=== PATIENT | female | born 1970 | race Two or more races ===

== ENCOUNTER 2019-11-30 16:50 | Emergency (ER) | payer OTHER ==
[~2019-11-30] VITALS: Ht 152.4 cm; Wt 69.9 kg
[2019-11-30] MEDS ORDERED: STEGLATRO5 MG (17:22)
[2019-11-30] MEDS ORDERED: FORTAMET1000 MG (17:23)
[2019-12-01] MEDS ORDERED: LEVSIN/SL0.125 MG SL (06:03)
[2019-12-01] MEDS ORDERED: MOBIC15 MG PO (06:03)
[2019-12-01] MEDS ORDERED: PEPCID40 MG PO (06:03)
[2019-12-01] MEDS ORDERED: PHENERGAN25 MG PO (06:03)
== END 2019-12-01 06:21 | disposition home or self-care (01) ==
LOC: ER 16:50
DX: K65.4 Sclerosing mesenteritis (principal); R10.11 Right upper quadrant pain

== ENCOUNTER 2019-12-16 12:35 | Emergency (ER) | payer OTHER ==
[~2019-12-16] VITALS: Ht 152.4 cm; Wt 69.9 kg
[~2019-12-16 12:35] MED LIST: FORTAMET1000 MG; LEVSIN/SL0.125 MG SL; MOBIC15 MG PO; PEPCID40 MG PO; PHENERGAN25 MG PO; STEGLATRO5 MG
== END 2019-12-16 16:02 | disposition home or self-care (01) ==
LOC: ER 12:35
DX: K58.8 Other irritable bowel syndrome (principal); R10.31 Right lower quadrant pain

== ENCOUNTER 2020-06-16 07:44 | Outpatient (CLI) | payer OTHER | END 2020-06-16 08:00 | disposition home or self-care (01) | LOC: NUCLEAR 07:44 | PROVIDERS: ATTEND Internal Medicine Cardiovascular Disease | DX: M81.0 Age-related osteoporosis without current pathological fracture (principal); E55.9 Vitamin D deficiency, unspecified ==

== ENCOUNTER → 2020-06-16 08:46 | Outpatient (CLI) | payer OTHER | END | disposition home or self-care (01) | LOC: LAB 08:46 | PROVIDERS: ATTEND Internal Medicine Cardiovascular Disease | DX: I10 Essential (primary) hypertension (principal); E11.9 Type 2 diabetes mellitus without complications; E03.8 Other specified hypothyroidism; E78.2 Mixed hyperlipidemia; E55.9 Vitamin D deficiency, unspecified ==

== ENCOUNTER 2020-06-16 10:13 | Outpatient (CLI) | payer OTHER | END 2020-06-16 10:38 | disposition home or self-care (01) | LOC: RAD 10:13 | PROVIDERS: ATTEND Internal Medicine Cardiovascular Disease | DX: N63.11 Unspecified lump in the right breast, upper outer quadrant (principal); R13.19 Other dysphagia; R92.2 Inconclusive mammogram ==

== ENCOUNTER 2021-11-13 20:27 | Emergency (ER) | payer OTHER ==
[~2021-11-13] VITALS: Ht 152.4 cm; Wt 65.8 kg
[2021-11-13] MEDS ORDERED: LOSARTAN POTASS25 MG PO (21:11)
== END 2021-11-13 23:56 | disposition home or self-care (01) ==
LOC: ER 20:27
DX: S00.93XA Contusion of unspecified part of head, initial encounter (principal); W18.30XA Fall on same level, unspecified, initial encounter; Y93.9 Activity, unspecified; Y92.59 Other trade areas as the place of occurrence of the external cause

== ENCOUNTER 2024-02-26 12:09 | Emergency (ER) | payer OTHER ==
[~2024-02-26] VITALS: Ht 121.9 cm; Wt 62.1 kg
[~2024-02-26 12:09] MED LIST changes: +LOSARTAN POTASS25 MG PO
[2024-02-26] MEDS ORDERED: KETOROLAC TROMETHAMINE 30 MG VIAL IV STA (14:08)
[2024-02-26] MEDS ORDERED: KETOROLAC TROMETHAMINE 30 MG VIAL IM STA (14:09)
[2024-02-26] MEDS ORDERED: METOCLOPRAMIDE HCL 5 MG/ML VIAL IV STA (16:01)
[2024-02-26] MEDS ORDERED: SUMATRIPTAN SUCCINATE 6 MG/0.5 ML VIAL SUBCUTANEO STA (16:02)
[2024-02-26] MEDS ORDERED: DEXAMETHASONE4 MG PO (17:34)
[2024-02-26] MEDS ORDERED: IMITREX50 MG PO (17:34)
== END 2024-02-26 17:44 | disposition home or self-care (01) ==
LOC: ER 12:10
DX: G43.909 Migraine, unspecified, not intractable, without status migrainosus (principal); E11.9 Type 2 diabetes mellitus without complications; Z79.84 Long term (current) use of oral hypoglycemic drugs; I10 Essential (primary) hypertension

== ENCOUNTER 2024-10-06 14:41 | Emergency (ER) | payer OTHER ==
[~2024-10-06] VITALS: Ht 152.4 cm; Wt 58.5 kg
[~2024-10-06 14:41] MED LIST changes: +DEXAMETHASONE4 MG PO; +IMITREX50 MG PO
[2024-10-06] MEDS ORDERED: MOUNJARO2.5 MG/0.5 SQ (15:21)
[2024-10-06] MEDS ORDERED: KETOROLAC TROMETHAMINE 30 MG VIAL IV ONE (16:45)
[2024-10-06] MEDS ORDERED: CEFTRIAXONE SODIUM 1,000 MG VIAL IV ONE (16:45)
[2024-10-06 17:42] LABS: HEMATOCRIT 36.6 % (36.0-45.00); HEMOGLOBIN 12.4 g/dL (12.0-15.00); MEAN CELL VOLUME 82.3 fL (80.00-100.00); MEAN CORPUSCULAR HEMOGLOBIN 27.9 pg (27.00-32.0); MEAN CORPUSCULAR HGB CONC 33.8 g/dl (32.0-36.0); PLATELET COUNT 305 K/uL (150-450); RED BLOOD COUNT 4.45 M/uL (4.00-6.00); RED CELL DISTRIBUTION WIDTH 13.8 % (11.5-14.5)
[2024-10-06 17:52] LABS: ERYTHROCYTE SEDIMENTATION RATE 23 mm/hr
[2024-10-06 18:15] LABS: ALBUMIN 3.7 gm/dL (3.4-5.0); ALKALINE PHOSPHATASE 85 U/L (50-136); ALT/SGPT 15 U/L (12-78); ANION GAP 7 (10.0-20.0); AST/SGOT 13 U/L (15-37); BLOOD UREA NITROGEN 15 mg/dL (7-18); BUN CREA RATIO 23 (7.0-25.0); CARBON DIOXIDE 32 mEq/L (21-32); CHLORIDE 109 mmol/L (98-107); CREATININE SERUM 0.64 mg/dL (0.55-1.02); GLOBULINA 3.3 G/DL (2.4-3.5); GLUCOSE FASTING 93 mg/dL (65-100); OSMOLALITY SERUM 287 MOSM/KG (275-295); POTASSIUM 3.86 mEq/L (3.5-5.1); SODIUM 144 mmol/L (136-145)
[2024-10-06 18:29] LABS: C-REACTIVE PROTEIN < 0.29 MG/DL (0.00-0.29)
[2024-10-06] MEDS ORDERED: DUI500 PO (18:55)
[2024-10-06] MEDS ORDERED: DICLOFENAC SODI75 MG PO (18:56)
== END 2024-10-06 19:21 | disposition home or self-care (01) ==
LOC: ER 14:44
PROVIDERS: General Practice
DX: R51.9 Headache, unspecified (principal); E11.9 Type 2 diabetes mellitus without complications; Z79.84 Long term (current) use of oral hypoglycemic drugs
CPT/HCPCS: 36415; 70450; 70486; 96365; 99284; J0696; J1885

== ENCOUNTER 2025-03-06 15:57 | Emergency (ER) | payer OTHER ==
[~2025-03-06] VITALS: Ht 152.4 cm; Wt 55.3 kg
[~2025-03-06 15:57] MED LIST changes: +DICLOFENAC SODI75 MG PO; +DUI500 PO; +MOUNJARO2.5 MG/0.5 SQ
[2025-03-06] MEDS ORDERED: FAMOTIDINE/PF 20 MG/2 ML VIAL IV ONE (17:15)
[2025-03-06] MEDS ORDERED: 0.9 % SODIUM CHLORIDE 500 ML IV ONE (17:15)
[2025-03-06] MEDS ORDERED: METOCLOPRAMIDE HCL 5 MG/ML VIAL IV ONE (17:15)
[2025-03-06 17:28] LABS: BASO % 0.1 % (0.1-1.2); EOS # 0.60 (0.04-0.54); EOS % 7.4 % (0.7-7.0); LYMPH # 2.31 (1.18-3.74); LYMPH % 28.4 % (19.3-53.1); MEAN PLATELET VOLUME 9.70 fl (9.4-12.4); MONO # 0.67 (0.24-0.82); MONO % 8.2 % (4.7-12.5); NEUT # 4.52 (1.56-6.13); NEUT % 55.7 % (34.0-71.1); RED CELL DISTRIBUTION WIDTH 13.1 % (11.6-14.4)
[2025-03-06] MEDS ORDERED: KETOROLAC TROMETHAMINE 30 MG VIAL IV ONE (17:45)
[2025-03-06 18:01] LABS: ALT/SGPT 16.0 U/L (12-78); AST/SGOT 10.0 U/L (15-37); BILIRUBIN TOTAL 0.48 mg/dL (0.3-1.2); BUN CREA RATIO 24.0 (7.0-25.0); CREATININE SERUM 0.74 mg/dL (0.55-1.02); GFR 81.78; GLOBULINA 3.5 G/DL (2.4-3.5); GLUCOSE FASTING 80.0 mg/dL (65-100); OSMOLALITY SERUM 286.0 MOSM/KG (275-295)
[2025-03-06 18:50] LABS: URINE APPEARANCE Cloudy; URINE BILIRRUBIN Negative (NEGATIVE); URINE BLOOD Trace; URINE COLOR Yellow; URINE GLUCOSE Negative (NEGATIVE); URINE KETONE Trace (NEGATIVE); URINE LEUKOCYTE Moderate; URINE NITRATE Negative; URINE PROTEIN Negative (NEGATIVE); URINE UROBILINOGEN 1.0 E.U./dl
[2025-03-06 18:53] LABS: URINE BACTERIA 1531.1 uL (0.0-1933); URINE EPITHELIAL CELLS 94.4 uL (0.0-38.8); URINE RBC 43.9 uL (0.0-20.8); URINE WBC 281.2 uL (0.0-23.2)
[2025-03-06 19:10] LABS: URINE CAST 0.29 uL (0.0-1.40)
[2025-03-06] MEDS ORDERED: MACROBID 100 M100 MG PO (20:00)
[2025-03-06] MEDS ORDERED: METOCLOPRAMIDE10 MG PO (20:04)
== END 2025-03-06 20:37 | disposition home or self-care (01) ==
LOC: ER 15:57
PROVIDERS: General Practice
DX: N39.0 Urinary tract infection, site not specified (principal); K29.70 Gastritis, unspecified, without bleeding; E11.9 Type 2 diabetes mellitus without complications; Z79.4 Long term (current) use of insulin; R10.9 Unspecified abdominal pain